=== PATIENT | male | born 1960 | race Caucasian/White ===

== ENCOUNTER 2025-01-14 11:27 | Emergency (ER) | payer MEDICARE ==
[~2025-01-14] VITALS: Ht 177.8 cm; Wt 79.0 kg
[~2025-01-14 11:27] MED LIST: HYDR-3965 PO
--- NOTE | 2025-01-14 13:24 | RADIOLOGY REPORT ---
PROCEDURE: MR MRI LUMBAR SPINE INDICATION: incontinence and RLE weakness Exam Date: 01/14/2025 12:21 PM COMPARISON: None TECHNIQUE: MRI lumbar spine without intravenous contrast. FINDINGS: The lumbar alignment is intact. There are degenerative endplate changes including modic endplate ch anges with anterior and lateral osteophytes throughout the lumbar spine. The visualized distal spinal cord and conus medullaris are within normal limits. The conus medullaris appears to terminate withi n normal limits. The visualized retroperitoneal and paraspinal soft tissues are unremarkable. The following axial levels are detailed below: T12-L1: There is a mild circumferential disc bulge. No significant central canal or neuroforaminal s tenosis. L1-L2: There is a mild circumferential disc bulge. No significant central canal or neuroforaminal s tenosis. L2-L3: There is a mild circumferential disc bulge. No significant central canal or neuroforaminal s tenosis. L3-L4: There is a mild circumferential disc bulge. No significant central canal or neuroforaminal s tenosis. L4-L5: There is a moderate circumferential disc bulge complicated by facet arthropathy associated w ith mild to moderate bilateral neuroforaminal stenosis. No significant central canal stenosis. L5-S1: There is a moderate circumferential disc bulge complicated by facet arthropathy associated wi th mild to moderate bilateral neuroforaminal stenosis left greater than right. No significant central canal stenosis. IMPRESSION: 1. Mild degenerative disease. No significant central canal stenosis. Neural foraminal stenosis as ab ove. HS:Y
--- NOTE | 2025-01-14 14:46 | RADIOLOGY REPORT ---
CLINICAL INFORMATION: 64 years old, Male; various neurologic deficits. TECHNIQUE: Axial imaging was obtained through the brain without contrast. Coronal and sagittal reform atted images were obtained, reviewed, and stored. Images were reviewed in brain and bone windows. Al l CT scans at this medical facility are performed using dose modulation techniques as appropriate to a performed exam including the following: Automated exposure control was utilized; adjustment of the MA and/or KV according to patient size; and use of iterative reconstruction technique. CTDIvol = 50.8 2, 0.07, 0.07 mGy DLP = 983.27 mGy-cm COMPARISON: None FINDINGS: There is no acute intracranial hemorrhage. No mass effect or midline shift. The ventricles and sulci are within normal limits in size for age. Basal cisterns are patent. The calvarium is unre markable. Paranasal sinuses and mastoid air cells are clear. IMPRESSION: No CT evidence of acute intracranial abnormality.
--- NOTE | 2025-01-14 15:13 | Physician Documentation ---
History of Present Illness ~ Chief Complaint: See Chief Complaint Stated Complaint: NEURO Time Seen by MD: 11:46 HPI 64 year old male with CP sent by PCP's office Dr. Darling for workup for possible cauda equina syndrome. He has been using a walker and noted by family to be dragging his R foot which is unusual. They have noted no upper extremity weakness. He has also been losing control of his urinary continence and had a gonzalez placed at his facility. Medication Reconciliation Allergies: Coded Allergies: No Known Allergies (Unverified , 01/14/25) Scheduled PRN Hydrocodone Bit/Acetaminophen 5/325 MG (Rowan 5/325 MG), 1 TAB PO Q6H PRN for pain Review of Systems All Other Systems at this time: Reviewed and Negative Physical Exam Vital Signs: Temperature: 98.7, Source: Oral, Heart Rate: 71, Respiratory Rate: 16, BP: 127/93, Pulse Oximetry: 99, Weight: 79.000 Oxygen Flow Rate: 0 Physical Exam HEENT: PERRL, moist oral mucosa, EOMI Pulmonary: No respiratory distress Cardiac: RRR, no murmur, rub or gallop GI: nondistended, soft, nontender, no guarding, no rebound MSK: no deformity Skin: w/d/i, no rash Neuro: alert, baseline contractures, RLE 3-4/5 strength to extension at knee and dorsiflexion at ankle; 5/5 strength LLE Psych: normal affect Progress Results/Orders Results/Orders Orders - BARI RICE MD Mri Lumbar Spine (01/14/25 12:15) Ct Head (01/14/25 13:51) Completed Orders - BARI RICE MD Mri Lumbar Spine (01/14/25 12:15) Ct Head (01/14/25 13:51) Vital Signs 01/14/25 01/14/25 01/14/25 11:34 11:57 15:39 Temp 98.7 98.0 Pulse 71 69 Resp 16 16 B/P (MAP) 127/93 132/92 Pulse Ox 99 99 O2 Flow Rate 0 Medical Decision Making Findings 64 year old male with known CP, now with several weeks of RLE weakness and using a walker, dragging his R foot, sent by PCP for evaluation for cauda equina. Imaging did not demonstrate evidence of spinal cord impingement and I will send him back to his PCP for further neurological workup. Additional Comment ddx = stroke, metabolic encephalopathy, lumbar radiculopathy, cauda equina syndrome, UTI, sepsis, pna Departure Disposition: HOME / SELF CARE / HOMELESS Impression: Primary Impression: Leg weakness Additional Impression: Cerebral palsy Condition: Stable Referrals: NO PRIMARY CARE PROVIDER (PCP) DARBY JOHNSON MD Education Educated: Patient, Family Educated regarding: diagnosis, treatment, prognosis, need for follow up Signature Scribe Signature: . Attestation: . BARI RICE MD Jan 14, 2025 15:13
[2025-01-14 15:39] VITALS: BP 132/92; PULSE 69; RESP 16; TEMP 98; O2SAT 99
== END 2025-01-14 15:52 | disposition home or self-care (01) ==
LOC: ER 11:28
DX: G80.9 Cerebral palsy, unspecified (principal); R51.9 Headache, unspecified; M47.897 Other spondylosis, lumbosacral region
CPT/HCPCS: 70450; 72148; 99284

== ENCOUNTER 2025-01-30 06:28 | Emergency (ER) | payer MEDICARE ==
[~2025-01-30] VITALS: Ht 175.3 cm; Wt 92.0 kg
[2025-01-30] MEDS ORDERED: proparacaine 0.5% ophthalmic drops 15ml EACHEYE ONE (06:40)
[2025-01-30] MEDS ORDERED: fluorescein sod 1mg ophthalmic strip LEFTEYE ONE (06:40)
[2025-01-30] MEDS ORDERED: fluorescein sod 1mg ophthalmic strip EACHEYE ONE (06:40)
[2025-01-30] MEDS ORDERED: fluorescein sod 1mg ophthalmic strip RIGHTEYE ONE (06:50)
--- NOTE | 2025-01-30 06:58 | ELECTROCARDIOGRAPH REPORT ---
[facility] Test Date: 2025-01-30 Test Time: 06:56:15 Pat Name: ARLENE MORRIS Department: [facility]- Patient ID: [id number] Room: Gender: M Terrazzo Helper: : 1960 Requested By: BARI RICE Order Number: [id number] Reading MD: Dr. Al Curran Measurements Intervals Bishop Rate: 62 P: 13 NM: 191 QRS: -30 QRSD: 98 T: 6 QT: 413 QTc: 420 Interpretive Statements Ventricular-paced complexes No further rhythm analysis attempted due to paced rhythm Left ventricular hypertrophy Anterior Q waves, possibly due to LVH Baseline wander in lead(s) V3 Electronically Signed On 01-30-2025 19:29:[address] Al Curran Please click the below link to view image of tracing.
[2025-01-30 07:01] LABS: MEAN PLATELET VOLUME 7.1 FL (7.4-10.4); RED CELL DISTRIBUTION WIDTH 13.7 % (11.5-14.5)
[2025-01-30 07:32] LABS: CREATININE 1.18 MG/DL (0.60-1.10); TOTAL CARBON DIOXIDE 29.6 MMOL/L (24-32); eCRCL 64 ML/MIN; eGFR 62 ML/MIN
[2025-01-30 07:38] LABS: LEUKOCYTE ESTERASE ,URINE MODERATE (Neg); NITRITES, URINE POSITIVE (Neg); OCCULT BLOOD,URINE LARGE (Neg)
[2025-01-30 07:47] LABS: UA COLLECTION TYPE FOLEY CATH
[2025-01-30 07:49] LABS: AMORPHOUS URATES 1+; WBC CLUMPS,URINE MODERATE /HPF (NEGATIVE)
[2025-01-30 07:50] LABS: SQUAMOUS EPITHELIAL CELL,UR MODERATE /LPF (FEW)
[2025-01-30] MEDS ORDERED: SULF1TAB49 PO (07:56)
--- NOTE | 2025-01-30 07:56 | Physician Documentation ---
History of Present Illness ~ Chief Complaint: Dizziness Stated Complaint: DIZZINESS Time Seen by MD: 06:35 Mode of Arrival: EMS HPI 64 year old male with developmental delay BIB EMS for evaluation from care facility for dizziness reported last night. Patient is poorly verbal and no other history is obtainable other than that he is supposed to follow up in surgery clinic for gallbladder pathology. Medication Reconciliation Allergies: Coded Allergies: No Known Allergies (Unverified , 01/30/25) Scheduled Sulfamethoxazole/Trimethoprim (Bactrim Ds Tablet), 1 TAB PO Q12H Scheduled PRN Hydrocodone Bit/Acetaminophen 5/325 MG (Lorena 5/325 MG), 1 TAB PO Q6H PRN for pain Review of Systems All Other Systems at this time: Reviewed and Negative Physical Exam Vital Signs: RN Vital Signs have been reviewed: Yes, Temperature: 98.6, Source: Oral, Heart Rate: 63, Respiratory Rate: 16, BP: 118/70, Pulse Oximetry: 96, Weight: 92.000 Physical Exam HEENT: PERRL, moist oral mucosa, EOMI Pulmonary: No respiratory distress Cardiac: RRR, no murmur, rub or gallop GI: nondistended, soft, nontender, no guarding, no rebound MSK: no deformity Skin: w/d/i, no rash Neuro: alert, nonfocal, poorly verbal, baseline abnormalities Psych: normal affect Progress Results/Orders Results/Orders Orders - BARI RICE MD General Nursing Order (01/30/25 06:37) Cult Urine + [place] [address] (01/30/25 07:50) Completed Orders - BARI RICE MD Ketorolac 0.5% Ophth Drops (Acular 0.5% (01/30/25 06:40) Cbc/Diff (01/30/25 06:40) CMP (01/30/25 06:40) Electrocardiogram (01/30/25 06:45) Fluorescein 1mg Ophthal Strip (Ful-Concepcion O (01/30/25 06:50) Ua W/Microscopic, Cult If Ind (01/30/25 07:20) Sulfamethox/Trimetho. Ds Tab (Septra Ds (01/30/25 07:50) Vital Signs 01/30/25 01/30/25 01/30/25 01/30/25 06:37 06:42 06:42 07:33 Temp 98.6 98.6 Pulse 67 64 63 Resp 19 19 22 16 B/P (MAP) 117/67 117/67 (84) 118/70 (86) Pulse Ox 97 96 96 01/30/25 09:20 Temp 98.6 Pulse 61 Resp 12 B/P (MAP) 115/70 Pulse Ox 98 Laboratory Tests Test 01/30/25 06:49 01/30/25 07:20 White Blood Count 8.4 Red Blood Count 4.12 L Hemoglobin 12.2 L Hematocrit 35.2 L Mean Corpuscular Volume 85.5 Mean Corpuscular Hemoglobin 29.6 Mean Corpuscular Hemoglobin Concent 34.7 Red Cell Distribution Width 13.7 Platelet Count 278 Mean Platelet Volume 7.1 L Neutrophils (%) (Auto) 79.5 H Lymphocytes (%) (Auto) 10.2 L Monocytes (%) (Auto) 9.0 Eosinophils (%) (Auto) 0.6 Basophils (%) (Auto) 0.7 Neutrophils # (Auto) 6.7 Lymphocytes # (Auto) 0.9 L Monocytes # (Auto) 0.8 Eosinophils # (Auto) 0.0 Basophils # (Auto) 0.1 CBC Comment Sodium Level 136 Potassium Level 4.1 Chloride Level 101 Carbon Dioxide Level 29.6 Anion Gap 5 L Blood Urea Nitrogen 16 Creatinine 1.18 H Estimated GFR/1.73 m2 62 BUN/Creatinine Ratio 13.6 Glucose Level 124 H Calcium Level 9.2 Total Bilirubin 0.6 Aspartate Amino Transf (AST/SGOT) 20 Alanine Aminotransferase (ALT/SGPT) 27 Alkaline Phosphatase 127 H Total Protein 7.4 Albumin 3.1 L Globulin 4.3 Albumin/Globulin Ratio 0.7 L Chemistry Comments Urine Specimen Description Gonzalez cath Urine Color Yellow Urine Clarity Turbid Urine pH 5.5 Urine Specific [place] 1.020 Urine Protein 100 H Urine Glucose (UA) Negative Urine Ketones Negative Urine Occult Blood Large H Urine Nitrite Positive H Urine Bilirubin Negative Urine Urobilinogen 1.0 Urine Leukocyte Esterase Moderate H Urine RBC Tntc Urine WBC Tntc H Urine WBC Clumps Moderate Urine Squamous Epithelial Cells Moderate Urine Amorphous Urates 1+ Urine Bacteria 3+ Urine Culture Indicated Indicated Volume Urine Centrifuged 10 ml Urine Comment Microbiology Date/Time Source Procedure Growth Status 01/30/25 07:50 Urine Gonzalez Cath Urine Culture - Preliminary Culture received. Resulted Medical Decision Making Findings 64 year old male with dizziness, unremarkable exam and vitals. Workup was significant for evidence of UTI. He had a gonzalez in place and we swapped it out to obtain the sample. Rx ABx, patient stable and no sepsis at this time. Differential Dx:Considerations: Include: anemia, dysrhythmia, electrolyte imbalance, encephalopathy, hypoglycemia, hypotension, hypovolemia, renal failure, TIA Departure Disposition: HOME / SELF CARE / HOMELESS Impression: Primary Impression: UTI (urinary tract infection) Additional Impression: Metabolic encephalopathy Condition: Stable Discharge Instructions: Urinary Tract Infection, Adult Referrals: NO PRIMARY CARE PROVIDER (PCP) Prescriptions Sulfamethoxazole/Trimethoprim (Bactrim Ds Tablet) 800 Mg-160 Mg Tablet 1 TAB PO Q12H for 7 Days, #14 TAB Prov: BARI RICE MD 01/30/25 Education Educated: Patient Educated regarding: diagnosis, treatment, prognosis, need for follow up Signature Scribe Signature: . Attestation: . BARI RICE MD Jan 30, 2025 07:56
[2025-01-30] MEDS: sulfamethoxazole/trimethoprim DS (800/160mg) tablet PO ONE (08:02)
[2025-01-30 09:20] VITALS: BP 115/70; PULSE 61; RESP 12; TEMP 98.6; O2SAT 98
== END 2025-01-30 09:25 | disposition home or self-care (01) ==
LOC: ER 06:28
DX: N39.0 Urinary tract infection, site not specified (principal); G93.41 Metabolic encephalopathy; R42 Dizziness and giddiness
CPT/HCPCS: 36415; 80053; 81001; 85025; 87077; 87088; 87186; 93005; 99284; A4314